=== PATIENT | male | born 1950 | race Caucasian/White ===

== ENCOUNTER 2018-01-22 20:20 | Inpatient (IN) ==
[2018-01-22 21:58] LABS: Basophils # 0.1 10*3/uL (0.0-0.2); Basophils % 0.7 % (0.0-0.8); Eosinophils # 0.4 10*3/uL (0.0-0.87); Eosinophils % 4.9 % (0.00-10.9); Hematocrit 38.5 VOL% (42.0-52.0); Hemoglobin 12.7 GM/DL (14.0-18.0); Immature Granulocytes % 0.6 %; Immature Granulocytes Absolute 0.05 #; Lymphocytes # 1.9 10*3/uL (1.4-4.0); Lymphocytes % 21.7 % (21.2-54.2); Mean Corpuscular Hemoglobin 30 PG (27-34); Mean Corpuscular Volume 92.1 FL (87-102); Mean Platelet Volume 11.3 FL (9.6-12.0); Monocytes # 0.8 10*3/uL (0.11-0.8); Monocytes % 9.1 % (1.7-12.7); Neutrophils # 5.5 10*3/uL (1.4-7.4); Platelet Count 150 T/CUMM (130-400); Red Blood Count 4.18 MC/CUMM (3.8-5.5); Red Cell Distribution Width 13.9 % (9.3-17.3); White Blood Count 8.8 T/CUMM (4-12)
[2018-01-22 22:00] LABS: Calcium 8.8 MG/DL (8.5-10.1); Osmolality,Calculated 287.8 MOS/KG (273-304); Potassium 4.2 MMOL/L (3.5-5.1); Troponin I Only 0.036 NG/ML (0.00-0.045)
[2018-01-22] MEDS ORDERED: MAGNESIUM SULF RIDER 4 GM in PREMIX 1 EACH IV PRN (23:11)
[2018-01-22] MEDS ORDERED: ACETAMINOPHEN 325 MG TABLET PO PRN (23:11)
[2018-01-22] MEDS ORDERED: MAGNESIUM SULF RIDER 2 GM in PREMIX 1 EACH IV PRN (23:11)
[2018-01-22] MEDS ORDERED: ONDANSETRON 4 MG/2 ML VIAL IV PRN (23:11)
[2018-01-22] MEDS ORDERED: MORPHINE 2 MG/1 ML SYRINGE IV PRN (23:11)
[2018-01-23] MEDS: SODIUM CHLORIDE 0.9% 1,000 ML IV SCH ×3 (00:15→17:24)
[2018-01-23 05:53] LABS: Calcium 8.3 MG/DL (8.5-10.1); Osmolality,Calculated 287.8 MOS/KG (273-304); Potassium 3.9 MMOL/L (3.5-5.1)
[2018-01-23 09:08] LABS: CKMB % 3.9 %
[2018-01-23 09:10] LABS: Troponin I Only 1.28 NG/ML (0.00-0.045)
[2018-01-23] MEDS ORDERED: FUROSEMIDE 20 MG TABLET PO PRN (09:40)
[2018-01-23] MEDS ORDERED: POTASSIUM CHLORIDE 20 MEQ TABLET PO PRN (09:46)
[2018-01-23] MEDS ORDERED: LACTULOSE 20 GM/30 ML UDCUP PO PRN (09:46)
[2018-01-23] MEDS ORDERED: DOCUSATE SODIUM 100 MG CAPSULE PO PRN (09:46)
[2018-01-23] MEDS ORDERED: ZALEPLON 5 MG CAPSULE PO PRN (09:46)
[2018-01-23] MEDS ORDERED: guaiFENesin/DM ER 600-30 MG TABLET PO PRN (09:46)
[2018-01-23] MEDS ORDERED: diphenhydrAMINE CAP 25 MG CAPSULE PO PRN (09:46)
[2018-01-23] MEDS ORDERED: CLOPIDOGREL 75 MG TABLET PO SCH (10:00)
[2018-01-23] MEDS: ALFUZOSIN 10 MG TABLET PO SCH (11:25)
[2018-01-23] MEDS: LISINOPRIL 5 MG TABLET PO SCH (11:25)
[2018-01-23] MEDS: ISOSORBIDE MONONITRATE 60 MG TABLET PO SCH (11:25)
[2018-01-23] MEDS: RANOLAZINE 500 MG TABLET PO SCH ×2 (11:25→21:13)
[2018-01-23] MEDS: PANTOPRAZOLE 40 MG TABLET PO SCH (11:25)
[2018-01-23] MEDS: amLODIPine 5 MG TABLET PO SCH (11:25)
[2018-01-23] MEDS: CETIRIZINE 10 MG TABLET PO SCH (11:26)
[2018-01-23] MEDS ORDERED: diphenhydrAMINE CAP 25 MG CAPSULE PO ONE (12:56)
[2018-01-23] MEDS ORDERED: DIAZEPAM 5 MG TABLET PO ONE (13:00)
[2018-01-23] MEDS ORDERED: ASPIRIN 325 MG TABLET ONE (14:39)
[2018-01-23] MEDS: ASPIRIN 325 MG TABLET PO SCH ×2 (14:39→21:15)
[2018-01-23] MEDS ORDERED: ASPIRIN EC 325 MG TABLET PO ONE (14:39)
[2018-01-23] MEDS ORDERED: HEPARIN/NACL 0.9% 2 UNITS/ML 2,000 ML IV ONE (14:50)
[2018-01-23] MEDS ORDERED: LIDOCAINE 1% 20 ML VIAL ONE (14:50)
[2018-01-23] MEDS ORDERED: HYDROmorphone 2 MG/1 ML VIAL ONE (14:50)
[2018-01-23] MEDS ORDERED: MIDAZOLAM 2 MG/2 ML VIAL ONE (14:51)
[2018-01-23] MEDS ORDERED: BIVALIRUDIN 250 MG VIAL IV ONE (15:58)
[2018-01-23] MEDS ORDERED: TICAGRELOR 90 MG TABLET ONE (16:21)
[2018-01-23] MEDS ORDERED: NITROGLYCERIN SL 0.4 MG TABLET SL PRN (16:50)
[2018-01-23] MEDS ORDERED: SODIUM CHLORIDE 0.65% NASAL SPRAY 45 ML BOTTLE BOTH NARES PRN (16:55)
[2018-01-23] MEDS ORDERED: ATORVASTATIN 80 MG TABLET PO SCH (21:00)
[2018-01-23] MEDS: TICAGRELOR 90 MG TABLET PO SCH (21:13)
[2018-01-24] MEDS: SODIUM CHLORIDE 0.9% 1,000 ML IV SCH ×2 (01:20→09:08)
[2018-01-24 04:52] LABS: Basophils # 0.1 10*3/uL (0.0-0.2); Basophils % 0.7 % (0.0-0.8); Eosinophils # 0.4 10*3/uL (0.0-0.87); Eosinophils % 5.3 % (0.00-10.9); Hematocrit 34.2 VOL% (42.0-52.0); Hemoglobin 11.4 GM/DL (14.0-18.0); Immature Granulocytes % 0.4 %; Immature Granulocytes Absolute 0.03 #; Lymphocytes # 0.8 10*3/uL (1.4-4.0); Lymphocytes % 11.8 % (21.2-54.2); Mean Corpuscular HGB Conc 33.3 GM/DL (32-36); Mean Corpuscular Hemoglobin 30 PG (27-34); Monocytes # 0.8 10*3/uL (0.11-0.8); Monocytes % 11.3 % (1.7-12.7); Neutrophils # 4.8 10*3/uL (1.4-7.4); Neutrophils % 70.5 % (38.7-73.9); Platelet Count 154 T/CUMM (130-400); Red Blood Count 3.76 MC/CUMM (3.8-5.5); Red Cell Distribution Width 14.2 % (9.3-17.3); White Blood Count 6.8 T/CUMM (4-12)
[2018-01-24 05:32] LABS: CKMB % 2.9 %; Calcium 7.9 MG/DL (8.5-10.1); Osmolality,Calculated 283.1 MOS/KG (273-304); Potassium 4.1 MMOL/L (3.5-5.1)
[2018-01-24 05:43] LABS: Risk Ratio 4.64; Troponin I Only 1.02 NG/ML (0.00-0.045); VLDL CHOLESTEROL 24.6 MG/DL
[2018-01-24] MEDS: TICAGRELOR 90 MG TABLET PO SCH (09:03)
[2018-01-24] MEDS: RANOLAZINE 500 MG TABLET PO SCH (09:03)
[2018-01-24] MEDS: ISOSORBIDE MONONITRATE 60 MG TABLET PO SCH (09:04)
[2018-01-24] MEDS: PANTOPRAZOLE 40 MG TABLET PO SCH (09:04)
[2018-01-24] MEDS: amLODIPine 5 MG TABLET PO SCH (09:04)
[2018-01-24] MEDS: CETIRIZINE 10 MG TABLET PO SCH (09:04)
[2018-01-24] MEDS: LISINOPRIL 5 MG TABLET PO SCH (09:04)
[2018-01-24] MEDS: ALFUZOSIN 10 MG TABLET PO SCH (09:08)
[2018-01-24 12:18] VITALS: BP 133/65
[2018-01-24] MEDS ORDERED: CARVEDILOL 3.125 MG TABLET PO SCH (12:30)
== END 2018-01-24 15:13 | disposition home or self-care (01) | DRG 247 ==
LOC: EDUNIT# → EDBD → N.ED 20:20 → N.EDINP 20:20 → N.TELES 22:58
PROVIDERS: ADMIT Internal Medicine Cardiovascular Disease; ATTEND Internal Medicine Cardiovascular Disease